=== PATIENT | male | born 1965 | race Caucasian/White ===

== ENCOUNTER 2016-11-25 00:13 | Emergency (ER) ==
[2016-11-25] MEDS ORDERED: DECADRON IM ONE (00:35)
[2016-11-25] MEDS ORDERED: DILAUDID IM ONE (00:35)
[2016-11-25] MEDS ORDERED: TORADOL IM ONE (00:35)
--- NOTE | 2016-11-25 00:38 | PROVIDER DOCUMENTATION ---
HPI-Musculoskeletal Pain/Inj - GENERAL Chief Complaint: Extremity Pain Stated Complaint: RT ARM EXTREMITY PAIN Time Seen by Provider: 11/25/16 00:19 Source: patient - HX OF PRESENT ILLNESS-MUSKULOSKELTAL Nature of Presenting Problem: Pt is a 50 y/o white male c chief complaint of atraumatic R wrist pain x 1 day. Pt states he has had this pain in the past and been told he may have carpal tunnel syndrome. Pt is being followed by Dr. Ray ([facility]). On arrival, pt is in moderate distress and has swelling to his R hand. Review of Systems - Adult - REVIEW OF SYSTEMS - ADULT Constitutional: reports: no symptoms reported. denies: chills, fatique Eyes: reports: no symptoms reported. denies: blurred vision, double vision Ears, Nose, Mouth & Throat: reports: no symptoms reported. denies: ear pain, nose pain, throat pain Cardiovascular: reports: no symptoms reported. denies: chest pain, orthopnea Respiratory: reports: no symptoms reported. denies: cough, shortness of breath Gastrointestinal: reports: no symptoms reported. denies: abdominal pain, nausea Genitourinary: reports: no symptoms reported. denies: dysuria, hematuria Musculoskeletal: reports: bone pain, joint pain, joint swelling, muscle aches Integumentary: reports: no symptoms reported. denies: itching, rash Neurological: reports: no symptoms reported. denies: numbness, paresthesia Psychiatric: reports: no symptoms reported. denies: anxiety, emotional problems Endocrine: reports: no symptoms reported. denies: cold intolerance, heat intolerance Hematologic/Lymphatic: reports: no symptoms reported. denies: blood clots, low blood count Allergic/Immunologic: reports: no symptoms reported. denies: allergic reactions , food allergy All Other Systems: Reviewed and Negative Past History - Adult - PAST MEDICAL HISTORY-ADULT Review of Records: reports: Old Records Reviewed, Nursing Assessment Review, Medications Reviewed, Social history reviewed & non-contributory. Major Childhood Illnesses: reports: denies history Cardiovascular: reports: denies history Respiratory: reports: denies history Gastrointestinal: reports: denies history Obstetrical/Gynecological: reports: denies history Genitourinary: reports: denies history Musculoskeletal: reports: arthritis, neck/back injury Neurological: reports: denies history Endocrine/Immune: reports: denies history Other Conditions: reports: denies history - PRIOR SURGERIES/PROCEDURES Surgical/Procedure History: reports: back/neck - IMMUNIZATION STATUS Childhood Immunizations: See Nurse Assessment Flu Vaccine: See Nurse Assessment - FAMILY HISTORY Family History: reviewed, not pertinent - SOCIAL HISTORY Smoking: denies Substance Use: none/never Alcohol Use Frequency: never Living Situation: family Physical Exam-Injury Related - Physical Exam-Injury Related Initial Vital Signs Reviewed: Yes General Appearance: appears well, alert, no apparent distress Eyes: PERRL/EOMI, pink conjunctivae Head, Ears, Nose, Mouth & Throat: normocephalic/atraumatic, normal ENT inspection, TMs normal, pharynx normal Neck: non-tender, full range of motion, supple, normal inspection Respiratory: chest non-tender, lungs clear, normal breath sounds Cardiovascular: normal peripheral pulses, regular rate, rhythm, no edema Abdominal Exam: normal bowel sounds, non tender, soft Lymphatic: no adenopathy Back Exam: normal inspection, no CVA tenderness, no vertebral tenderness Extremity: normal range of motion, non-tender, normal gait, tenderness (R wrist , + tinnel sign) Integumentary: normal color, warm/dry Neurologic: final application reviewer II-XII nml as tested, no motor/sensory deficits Psych/Mental Status: AL, normal mood/affect, normal thought content, normal thought process, oriented x 3 Progress - PLAN OF CARE/RESULTS Progress/Plan/Lab Results: Orders Category Date Time Status WRIST COMPLETE RIGHT [RAD] Stat Exams 11/25/16 00:35 Ordered Dexamethasone [Decadron] Med 11/25/16 00:35 Discontinued 10 mg IM NOW ONE Hydromorphone [Dilaudid] Med 11/25/16 00:35 Discontinued 1 mg IM NOW ONE Ketorolac [Toradol] Med 11/25/16 00:35 Discontinued 60 mg IM NOW ONE Vital Signs - 24 hr 11/25/16 00:17 Temperature 97.6 F Pulse Rate 88 Respiratory 22 Rate Blood Pressure 124/99 O2 Sat by Pulse 100 Oximetry - XRAY 1 XRAY: Right XRAY Study: Wrist Impression: Normal XRAY Interpretation: no fx Procedures - SPLINTING Right Upper Extremity Other Location: r wrist Pre-Procedure Neurovascular Exam: Intact Pre-Fabricated Splint: Wrist Applied By: ED Nurse Assisted By: laborer pullet farm Post Procedure Neurovascular Exam: Intact Departure - Departure Time of Disposition Order: 00:36 DIAGNOSIS: Acute wrist pain Qualifiers: Laterality: right Qualified Code(s): M25.531 - Pain in right wrist Disposition: HOME 01 Certified Medical Emergency: Emergent Condition: Stable Additional Instructions: ED Follow Up Instructions: You have been treated by a care provider in the Emergency Department. These instructions are being provided to you so you can have an understanding of how to care for yourself upon discharge. Upon discharge from the Emergency Department, you are responsible for making arrangements for follow-up care by a physician of your choice. Take all prescribed medications as directed. Return to the Emergency Department immediately for any new or worsening symptoms. You may call the Physician Referral phone number at [phone] to obtain a list of Physicians who are taking new patients. Prescriptions: Methylprednisolone [Medrol Dosepak] 4 mg PO DIRECTED #1 package Ibuprofen [Motrin] 800 mg PO Q8H PRN PRN #20 tablet PRN Reason: inflammation Omeprazole [Prilosec] 20 mg PO DAILY@0700 #20 capsule Tramadol [Ultram] 50 mg PO Q8HR #14 tablet Referrals: Ryne Spangler MD [Primary Care Provider] - Fredi Ray MD [STAFF PHYSICIAN] - Instructions: Wrist Pain Attestation - Physician/ Mid-level Attestation Patient care was provided by Mid-level provider (CRIMINAL INTELLIGENCE ANALYST/PA):: Yes Mid-level provider:: Haider Gates Mid-level documentation review:: The Mid-level provider documentation, treatment plan and medical decision making was reviewed by the physician who agrees with all treatment and medical decision making by the P.
[2016-11-25 01:47] VITALS: BP 121/83
--- NOTE | 2016-11-25 12:59 | Diag Imaging Result Document ---
PROCEDURE NAME: WRIST COMPLETE RIGHT - 11/25/2016 PLAIN RADIOGRAPH OF THE RIGHT WRIST, 3 VIEWS: COMPARISON: None available. FINDINGS: There is no discrete fracture, dislocation, or intrinsic osseous lesion. The visualized joint spaces are essentially unremarkable. The surrounding soft tissues are grossly unremarkable. IMPRESSION: No evidence of acute osseous abnormality.
== END 2016-11-25 01:47 | disposition home or self-care (01) ==
LOC: ED 00:13
DX: M25.531 Pain in right wrist (principal); M25.431 Effusion, right wrist; M79.1 Myalgia; Z79.899 Other long term (current) drug therapy
CPT/HCPCS: 96372; J1170; J1885